=== PATIENT | female | born 2000 | race American Indian/Alaskan Native ===

== ENCOUNTER 2019-11-20 10:45 | Emergency (ER) | payer SELFPAY ==
[2019-11-20] MEDS ORDERED: ACETAMINOPHEN 325 MG TAB PO ONE (11:44)
--- NOTE | 2019-11-20 12:27 | Emergency Department Report ---
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 Patient reports she just got back from [place]. Patient denies any nausea vomiting or diarrhea. Patient states that the pain is worse with movement no pain with eating or drinking. Patient reports the pain is on the right side of of her abdominal area. Patient is concerned that she may be as her menstrual period is due today. Patient states that she has lumpy breasts with pain. Patient reports a past medical history of a herniated disc in her back. She takes no medications on a daily basis has no known drug allergies. Patient reports no primary care provider. MD Complaint: abdominal pain - Related Data Allergies Allergy/AdvReac Type Severity Reaction Status Date / Time No Known Allergies Allergy Unverified 11/20/19 10:49 ED Review of Systems ROS: Stated complaint: STOMACH/SIDE PAIN Other details as noted in HPI ED Past Medical Hx - Past Medical History Additional medical history: BACK PAIN - Surgical History Additional Surgical History: BACK SURG - Social History Smoking Status: Never Smoker Substance Use Type: Marijuana ED Physical Exam - General Limitations: No Limitations ED Course Vital Signs 11/20/19 12:43 Respiratory 18 Rate ED Medical Decision Making - Lab Data Result diagrams: 11/20/19 12:08 11/20/19 12:08 Laboratory Tests 11/20/19 11/20/19 11/20/19 12:08 12:08 12:08 WBC 9.7 RBC 4.16 Hgb 13.3 Hct 38.9 MCV 93 MCH 32 MCHC 34 RDW 13.4 Plt Count 258 Lymph % (Auto) 17.8 [place] % (Auto) 9.1 H Eos % (Auto) 0.2 Baso % (Auto) 0.2 Lymph # 1.7 [place] # 0.9 H Eos # 0.0 Baso # 0.0 Seg Neutrophils % 72.7 H Seg Neutrophils # 7.1 Sodium 139 Potassium 4.1 Chloride 102.2 Carbon Dioxide 18 L Anion Gap 23 BUN 11 Creatinine 0.8 Estimated GFR > 60 BUN/Creatinine Ratio 14 Glucose 91 Calcium 9.8 Total Bilirubin 0.60 AST 24 ALT 33 Alkaline Phosphatase 61 Total Protein 7.8 Albumin 4.3 Albumin/Globulin Ratio 1.2 Lipase HCG, Quant < 2 Urine Color Urine Turbidity Urine pH Ur Specific [place] Urine Protein Urine Glucose (UA) Urine Ketones Urine Blood Urine Nitrite Urine Bilirubin Urine Urobilinogen Ur Leukocyte Esterase Urine WBC (Auto) Urine RBC (Auto) U Epithel Cells (Auto) Urine Mucus 11/20/19 11/20/19 12:08 12:28 WBC RBC Hgb Hct MCV MCH MCHC RDW Plt Count Lymph % (Auto) [place] % (Auto) Eos % (Auto) Baso % (Auto) Lymph # [place] # Eos # Baso # Seg Neutrophils % Seg Neutrophils # Sodium Potassium Chloride Carbon Dioxide Anion Gap BUN Creatinine Estimated GFR BUN/Creatinine Ratio Glucose Calcium Total Bilirubin AST ALT Alkaline Phosphatase Total Protein Albumin Albumin/Globulin Ratio Lipase 15 HCG, Quant Urine Color [place] Urine Turbidity Cloudy Urine pH 5.0 Ur Specific [place] 1.029 Urine Protein 30 mg/dl Urine Glucose (UA) Neg Urine Ketones 20 Urine Blood Neg Urine Nitrite Neg Urine Bilirubin Neg Urine Urobilinogen 2.0 Ur Leukocyte Esterase Neg Urine WBC (Auto) 3.0 Urine RBC (Auto) 9.0 U Epithel Cells (Auto) 39.0 H Urine Mucus 3+ - Radiology Data Radiology results: report reviewed Patient: FANTA MENEZES MR#: [id number] : 2000 Acct:[id number] Age/Sex: 19 / F ADM Date: 11/20/19 Loc: ED Attending Dr: Ordering Physician: MAREK NIXON Date of Service: 11/20/19 Procedure(s): CT abdomen pelvis w con Accession Number(s): [id number] cc: MAREK NIXON CT OF THE ABDOMEN AND PELVIS WITH INTRAVENOUS CONTRAST INDICATION / CLINICAL INFORMATION: Epigastric pain with nausea. TECHNIQUE: The patient received 100 cc Omnipaque [address] scans at this location are performed using CT dose reduction for ALARA by means of automated exposure control. COMPARISON: None available. FINDINGS: ABDOMEN: The liver, spleen, gallbladder, bile ducts, adrenal glands, kidneys and bowel demonstrate no significant abnormality. No adenopathy is seen. The lung bases are clear. PELVIS: There is a 2.9 cm mildly thick-walled cyst in the left adnexa with mild free fluid in the cul-de-sac. The uterus and right adnexa are unremarkable. There is no evidence of appendicitis or diverticulitis. I do not identify a hernia. The distal ureters and urinary bladder are normal. There is an umbilical piercing. There is mild degenerative disc disease at L3-4. IMPRESSION: 2.9 cm corpus luteal cyst in the left ovary and associated free fluid in the cul-de-sac are physiologic findings. Signer Name: Sridhar Carlson MD Signed: 11/20/2019 3:13 PM Workstation Name: [id number] Transcribed By: RT Dictated By: Sridhar Carlson MD Electronically Authenticated By: Sridhar Carlson MD Signed Date/Time: 11/20/19 1513 DD/ 1509 TD/TT: - Medical Decision Making 19-year-old -[place] female presents to the emergency room complaint abdominal pain x3 days. Patient reports she just got back from [place]. Patient denies any nausea vomiting or diarrhea. Patient states that the pain is worse with movement no pain with eating or drinking. Patient reports the pain is on the right side of of her abdominal area. Patient is concerned that she may be as her menstrual period is due today. Patient states that she has lumpy breasts with pain. Patient reports a past medical history of a herniated disc in her back. She takes no medications on a daily basis has no known drug allergies. Patient reports no primary care provider. CBC, CMP, lipase, CT abdomen with pelvis contrast hCG urinalysis. IV fluids, morphine and Zofran given. Labs to come back within normal limits. CT scan just shows a luteal cyst on the left ovary. Critical care attestation.: If time is entered above; I have spent that time in minutes in the direct care of this critically ill patient, excluding procedure time. ED Disposition Clinical Impression: Other ovarian cyst, left side, Negative test Disposition: - TO HOME OR SELFCARE Is pt being admited?: No Does the pt Need Aspirin: No Condition: Stable Instructions: Abdominal Pain (ED) Additional Instructions: CT shows you have a ovarian cyst. Lab work are negative for any significant negative test. Take Tylenol or ibuprofen as needed for pain management follow-up with your primary care provider. Referrals: PRIMARY CAREMD [Primary Care Provider] - 3-5 Days [facility] [Provider Group] - 3-5 Days Forms: Work/School Release Form(ED)
[2019-11-20] MEDS ORDERED: MORPHINE 4 MG/1 ML INJ IV ONE (12:29)
[2019-11-20] MEDS ORDERED: ONDANSETRON 4 MG/2 ML INJ IV ONE (12:29)
[2019-11-20] MEDS ORDERED: SODIUM CHLORIDE 0.9% 1000 ML 1,000 ML IV ONE (12:30)
[2019-11-20 12:43] LABS: Basophils % (Auto) 0.2 % (0.0-1.8); Eosinophils % (Auto) 0.2 % (0.0-4.3); Hematocrit 38.9 % (30.3-42.9); Hemoglobin 13.3 gm/dl (10.1-14.3); Lymphocytes # (Auto) 1.7 K/mm3 (1.2-5.4); Lymphocytes % (Auto) 17.8 % (13.4-35.0); Mean Corpuscular HGB Conc 34 % (30-34); Mean Corpuscular Volume 93 fl (79-97); Monocytes # (Auto) 0.9 K/mm3 (0.0-0.8); Monocytes % (Auto) 9.1 % (0.0-7.3); Platelet Count 258 K/mm3 (140-440); Red Blood Count 4.16 M/mm3 (3.65-5.03); Red Cell Distribution Width 13.4 % (13.2-15.2)
[2019-11-20 12:46] LABS: Bilirubin,Urine NEG (Negative); Blood,Urine NEG (Negative); Color,Urine Amber (Yellow); Mucus,Urine 3+ /HPF
[2019-11-20 13:57] LABS: Alanine Aminotransferase 33 units/L (7-56); Albumin 4.3 g/dL (3.9-5); BUN/Creatinine Ratio 14; Blood Urea Nitrogen 11 mg/dL (7-17); Calcium 9.8 mg/dL (8.4-10.2); Hemolysis Index 7
--- NOTE | 2019-11-20 15:17 | Cat Scan Report ---
CT OF THE ABDOMEN AND PELVIS WITH INTRAVENOUS CONTRAST INDICATION / CLINICAL INFORMATION: Epigastric pain with nausea. TECHNIQUE: The patient received 100 cc Omnipaque [address] scans at this location are performed using CT dose reduction for ALARA by means of automated exposure control. COMPARISON: None available. FINDINGS: ABDOMEN: The liver, spleen, gallbladder, bile ducts, adrenal glands, kidneys and bowel demonstrate no significant abnormality. No adenopathy is seen. The lung bases are clear. PELVIS: There is a 2.9 cm mildly thick-walled cyst in the left adnexa with mild free fluid in the cul -de-sac. The uterus and right adnexa are unremarkable. There is no evidence of appendicitis or divert iculitis. I do not identify a hernia. The distal ureters and urinary bladder are normal. There is an umbilical piercing. There is mild degenerative disc disease at L3-4. IMPRESSION: 2.9 cm corpus luteal cyst in the left ovary and associated free fluid in the cul-de-sac a re physiologic findings. Signer Name: Sridhar Carlson MD Signed: 11/20/2019 3:13 PM Workstation Name: [id number]
== END 2019-11-20 15:24 | disposition home or self-care (01) ==
LOC: ED 10:45
DX: N83.292 Other ovarian cyst, left side (principal); Z32.02 Encounter for pregnancy test, result negative; F12.10 Cannabis abuse, uncomplicated
CPT/HCPCS: 36415; 74177; 80053; 81001; 83690; 84702; 85025; 96374; 96375; 99284; J2270; J2405; J7030; Q9967